=== PATIENT | female | born 1970 | race Caucasian/White ===

== ENCOUNTER → 2020-01-08 | Outpatient (CLI) | payer OTHER ==
[~2020-01-08] MED LIST: MUPI2TC TOP; Norco 5-325 Ta1 EACH PO; PARO10 PO
== END | disposition home or self-care (01) ==
LOC: PLD 11:00 → LAB SHORT 11:00
DX: L30.8 Other specified dermatitis (principal)
CPT/HCPCS: 88305; 88312

== ENCOUNTER → 2022-10-01 | Outpatient (CLI) | payer OTHER | END | disposition home or self-care (01) | LOC: LAB SHORT 14:12 → LAB 14:12 | DX: R10.9 Unspecified abdominal pain (principal) | CPT/HCPCS: 87086 ==

== ENCOUNTER → 2024-01-23 | Outpatient (CLI) | payer OTHER | END | disposition home or self-care (01) | LOC: LAB 10:40 → LAB SHORT 10:40 | DX: N39.0 Urinary tract infection, site not specified (principal) | CPT/HCPCS: 87086 ==

== ENCOUNTER → 2024-02-06 | Outpatient (CLI) | payer OTHER ==
[~2024-02-06] MED LIST changes: +AUVELITY ER 451 EACH PO; +BUSPIRONE HCL7.5 M1 PO; +LEVSOD100 PO
[2024-02-06 09:00] LABS: Source, Urine Clean Catch
[2024-02-06 14:13] LABS: Appearance, Urine Cloudy (Clear); Bilirubin, Urine Neg (Neg); Blood, Urine 4+ (Neg); Color, Urine Yellow (P-Yellow); Glucose Qualitative, Urine Neg (Neg); Ketones, Urine Neg (Neg); Leukocyte Esterase, Urine 3+ (Neg); Nitrite, Urine Neg (Neg); Protein, Urine 1+ (Neg); Urobilinogen, Urine NORM (Normal)
[2024-02-06 15:23] LABS: Bacteria Many /hpf; Squamous Epithelial Cells Many /hpf (Few); White Blood Cells, Urine 50-100 /hpf (0-5)
== END | disposition home or self-care (01) ==
LOC: LAB 08:52 → LAB SHORT 08:52
PROVIDERS: Obstetrics & Gynecology
DX: R30.0 Dysuria (principal)
CPT/HCPCS: 81001; 87086

== ENCOUNTER 2024-02-10 09:27 | Day surgery (SDC) | payer OTHER ==
[~2024-02-10] VITALS: Ht 165.1 cm; Wt 59.6 kg
[~2024-02-10 09:27] MED LIST changes: -AUVELITY ER 451 EACH PO; -BUSPIRONE HCL7.5 M1 PO; -LEVSOD100 PO; +Lactated Ringer's 1,000 ML IV ONE
[2024-02-10] MEDS ORDERED: Lactated Ringer's 1,000 ML IV ONE ×2 (10:43→12:05)
[2024-02-10] MEDS ORDERED: BUSPIRONE HCL7.5 M1 PO (10:45)
[2024-02-10] MEDS ORDERED: LEVSOD100 PO (10:46)
[2024-02-10] MEDS ORDERED: AUVELITY ER 451 EACH PO (10:47)
[2024-02-10] MEDS ORDERED: propofoL 50 ML IV ONE (11:17)
[2024-02-10] MEDS ORDERED: Dexamethasone Sod Phos 10 MG/ML 1ML VIAL ONE (11:26)
[2024-02-10] MEDS ORDERED: Ketorolac Tromethamine 30mg Vial ONE (11:26)
[2024-02-10] MEDS ORDERED: Ondansetron HCl 2 MG / ML 2ML Vial ONE (11:26)
[2024-02-10] MEDS ORDERED: FentaNYL Citrate 50 MCG/ML 2 ML Injection ONE ×2 (11:26→12:19)
[2024-02-10] MEDS ORDERED: Vasopressin 20 UNITS/ML 1ML Vial ONE (11:37)
[2024-02-10] MEDS ORDERED: Phenylephrine HCl 100 MCG/ML-NS 10MLSYR (1MG/10ML) ONE (11:45)
[2024-02-10 12:39] VITALS: BP 96/55
--- NOTE | 2024-02-10 13:10 | NUR ---
02/10/24 1310 Delisa Pringle 2 IV ATTEMPTS BY TXG THAT WERE UNSUCCESSFUL, 3RD ATTEMPT BY JST WAS SUCCESSFUL
--- NOTE | 2024-02-10 13:50 | NUR ---
02/10/24 1350 Kamilah Pickering SEE VITAL STRIP, PT MONITIORED. BP-ASYMPOTMATIC, FLUIDS GIVEN . PT EAGER TO GO HOME
[2024-02-17 11:20] LABS: HPV GENOTYPE 16 BY TMA Not Detected; HPV GENOTYPE 18/45 BY TMA Not Detected; HPV HIGH RISK BY TMA Detected; HPV SOURCE Not Provided; HPVG SOURCE Not Provided
== END 2024-02-10 13:40 | disposition home or self-care (01) ==
LOC: ORSCSDS 09:27
PROVIDERS: Obstetrics & Gynecology
PROC: 0UBC8ZZ Excision of Cervix, Via Natural or Artificial Opening Endoscopic (ICD-10-PCS; principal; 2024-02-10 11:00)
DX: N95.0 Postmenopausal bleeding (principal); R93.89 Abnormal findings on diagnostic imaging of other specified body structures; E03.9 Hypothyroidism, unspecified; F41.1 Generalized anxiety disorder; F32.A Depression, unspecified; E78.00 Pure hypercholesterolemia, unspecified; Z87.891 Personal history of nicotine dependence; Z85.850 Personal history of malignant neoplasm of thyroid; Z79.899 Other long term (current) drug therapy
CPT/HCPCS: 87624; 87625; 88305; G0123; J1100; J1885; J2371; J2405; J2704; J3010; J7120

== ENCOUNTER 2024-05-11 07:06 | Day surgery (SDC) | payer OTHER ==
[~2024-05-11] VITALS: Ht 165.1 cm; Wt 62.7 kg
[~2024-05-11 07:06] MED LIST changes: +AUVELITY ER 451 EACH PO; +BUSPIRONE HCL7.5 M1 PO; +LEVSOD100 PO; -Lactated Ringer's 1,000 ML IV ONE
[2024-05-11] MEDS ORDERED: Lactated Ringer's 1,000 ML IV ONE (07:19)
[2024-05-11] MEDS ORDERED: Lidocaine HCl 2% 10 ML SDA ONE (08:04)
[2024-05-11] MEDS ORDERED: propofoL 20 ML IV ONE (08:06)
[2024-05-11] MEDS ORDERED: FentaNYL Citrate 50 MCG/ML 2 ML Injection ONE (08:06)
[2024-05-11] MEDS ORDERED: Midazolam HCl 1MG / ML 2ML Vial ONE (08:06)
[2024-05-11] MEDS ORDERED: Ondansetron HCl 2 MG / ML 2ML Vial ONE (08:23)
[2024-05-11] MEDS ORDERED: Dexamethasone Sod Phos 10 MG/ML 1ML VIAL ONE (08:23)
--- NOTE | 2024-05-11 08:30 | NUR ---
05/11/24 0830 Milla Guallpa A PATIENT URINATED BEFORE COMING TO OR. SURGEON AWARE AND IN AGREEMENT.
[2024-05-11] MEDS ORDERED: Ketorolac Tromethamine 30mg Vial ONE (08:35)
--- NOTE | 2024-05-11 09:06 | NUR ---
05/11/[address] SONAL Alvarez, ANESTHESIOLOGIST, AWARE OF BP ON THE LOW END EVEN BEFORE SEDATION IN OR. DR IS OK WITH MAP OF 60 OR HIGHER. PT MAINTAINING BP MAP OF 60 OR HIGHER.
[2024-05-11 09:17] VITALS: BP 95/73
== END 2024-05-11 09:40 | disposition home or self-care (01) ==
LOC: ORSCSDS 07:06
PROVIDERS: Obstetrics & Gynecology
PROC: 0UBC7ZX Excision of Cervix, Via Natural or Artificial Opening, Diagnostic (ICD-10-PCS; principal; 2024-05-11 08:30)
DX: R87.610 Atypical squamous cells of undetermined significance on cytologic smear of cervix (ASC-US) (principal); F41.1 Generalized anxiety disorder; E78.00 Pure hypercholesterolemia, unspecified; Z85.850 Personal history of malignant neoplasm of thyroid; Z79.899 Other long term (current) drug therapy; E89.0 Postprocedural hypothyroidism; Z87.891 Personal history of nicotine dependence
CPT/HCPCS: 88305; J1100; J1885; J2003; J2250; J2405; J2704; J3010